=== PATIENT | male | born 1950 | race Caucasian/White ===

== ENCOUNTER → 2023-11-24 | Outpatient (CLI) | payer OTHER, SELFPAY ==
--- NOTE | 2023-11-24 11:22 | EKG12_ITS ---
Test Reason : CAD Blood Pressure : / mmHG Vent. Rate : 064 BPM Atrial Rate : 064 BPM P-R Int : 222 ms QRS Dur : 100 ms QT Int : 408 ms P-R-T Axes : -18 003 020 degrees QTc Int : 420 ms Sinus rhythm with 1st degree A-V block Otherwise normal ECG Confirmed by RADHA NIEVES, LESLIE ([id number]), general expeditor QUITA STONER ([id number]) on 11/25/2023 5:55:56 AM Referred By: Norbert Kwok Confirmed By:LESLIE GARCIA MD
== END | disposition home or self-care (01) ==
LOC: PSN 11:20
PROVIDERS: Referring Provider Chiropractor; Visit Provider Chiropractor
DX: I25.10 Atherosclerotic heart disease of native coronary artery without angina pectoris (principal)
CPT/HCPCS: 93005